=== PATIENT | male | born 1950 | race Caucasian/White ===

== ENCOUNTER 2018-05-19 19:17 | Emergency (ER) | payer MEDICARE, SELFPAY ==
[2018-05-19 19:19] VITALS: BP 198/94; PULSE 78; RESP 16; TEMP 36.6; O2SAT 99
--- NOTE | 2018-05-19 19:24 | DI.CT_ITS ---
SYMPTOMS/DIAGNOSIS: HEAD INJURY CRANIAL AND C-SPINE CT: CRANIAL: There is no evidence of an intra/extra-axial hemorrhage. There is mild diffuse heterogeneity of the white matter, consistent with small vessel disease. Also, there is mild cerebral atrophy in the medial left temporal lobe, where a low attenuation area in the medial temporal lobe is identified. This finding could represent an arachnoid cyst, or epidermoid or encephalomalacia. Hyperdensity adjacent to the calvarium in the left parietal region is identified and does not appear to represent a subdural hematoma and likely represents a vascular structure. Ventricles are unremarkable. There is no skull fracture. Note is made of increased density in the ethmoid sinuses, and right frontal sinus and sphenoid sinus, consistent with mild inflammatory change. There is no evidence of a mastoid effusion. Soft tissue swelling is noted posteriorly and superiorly on the left side. SUMMARY: No acute intracranial abnormality is demonstrated. An area of porencephaly involving the medial left temporal lobe could represent an arachnoid cyst or epidermoid or represent a region of encephalomalacia. Note is made of some increased density in the ethmoid and right frontal sinus and sphenoid sinus consistent with mild sinusitis, nil else. C-SPINE: There is no evidence of a fracture or subluxation. Note is made of mild spurring at C4-C5 and C7-T1. There is no evidence of spinal stenosis. There is mild mucoperiosteal thickening involving the posterior portion of the sphenoid sinus, consistent with mild sinusitis. There are at least three possible nodules in the posterior right upper lobe, the largest measuring up to 10 mm. Further assessment with a chest CT is suggested when clinically appropriate. SUMMARY: No acute abnormality involving the cervical spine is demonstrated. There are some regions of pleural and pulmonary thickening involving the lung apices and nodules are suggested. Further assessment with chest CT would be of value.
--- NOTE | 2018-05-19 19:27 | W.ED.GENAD ---
Discharge Plan Disposition Patient Disposition: HOME Condition: Improving Discharge Details Chief Complaint: HeadInjury Clinical Impression: Head injury due to trauma, Concussion Reason For Visit: JOEY Primary Care Provider: Saul Pierce ED Provider: Frederic Starks Home Meds and New Rx's Prescriptions: Continue pravastatin [Pravachol] 40 mg Tablet 40 mg PO DAILY RF: 0 metoprolol tartrate 100 mg Tablet 100 mg PO BID RF: 0 levetiracetam 750 mg Tablet 750 mg PO BID RF: 0 valsartan-hydrochlorothiazide 160-25 mg Tablet 1 tab PO DAILY RF: 0 Discharge Instructions Instructions: Concussion (ED), Head Injury (ED) Additional Instructions: Return immediately to the emergency department for any new or significant worsening of your symptoms. Watch your wound for any signs of infection such as purulent drainage, fever chills, severe surrounding redness to the area. Given head injury it is encouraged that you rest over the next 2 days and slowly advance activity as tolerated. Referrals: Saul Pierce [Primary Care Provider] - (As needed for reassessment) Medical Decision Making Patient presenting to the emergency department for stated mechanical fall and hitting the back of his head. Patient states that he was playing tennis this evening with some friends and went to hit an overhead ball when he slipped and fell backwards striking the back of his head. He states some bleeding from the back of his head but denies any loss of consciousness, chest pain shortness of breath difficulty breathing, neck or back pain, abnormal neurological symptoms, and remembers the whole event. Physical exam does show a moderate hematoma to the back of patient's scalp with some mild bleeding but no other significant findings on physical exam. Patient does state that he takes a daily aspirin and believes he is on a blood thinner but does not remember his medications. Patient is hypertensive but does state he does take antihypertensive medication but again does not remember the name. Plan to check labs and CT image of the head and cervical spine suspect a mechanical fall with superficial injury to the posterior scalp and doubt fracture at this time so I do not feel that patient needs to be C-collared. Review of labs is unremarkable and no concerning findings and CT image also shows no acute intracranial hemorrhage, there is some soft tissue swelling, a 5 x 3 cm low-attenuation area in the medial left temporal lobe. This may represent encephalomalacia, arachnoid cyst, or epidermoid. Review of patient's old records shows that this is not a new finding and was present on previous CT imaging. did present to the emergency department does state the patient had a severe brain infection a while ago and was hospitalized at [facility] for greater than 1 month and that finding has been present for a while. Wound was thoroughly cleansed and visualized and appears to be a superficial abrasion with some spots continuing to bleed so let was applied and a skin adhesive was used on these small spots but no significant signs of laceration are noted. Patient was able to ambulate throughout the room and state he felt a little funny in his head but otherwise denied any focal neurological deficits, patient had normal gait with no instability, and remained neurologically intact with no acute neurological findings or changes. Given this I feel the patient is able to be safely discharged with encourage rest over the next couple days and slowly advance activity as tolerated. Patient to return for any new or worsening symptoms otherwise follow-up with primary care. After discussion of diagnosis and plan of care patient and his they state no further needs, questions, or concerns and states clear understanding to return to the emergency department for any worsening symptoms. billing and accounting staff assistant noted continued hypertension that has slowly improved but still hypertensive. Patient denies any chest pain shortness of breath difficulty breathing or other symptoms so patient was encouraged to take his normal daily hypertensive medication as scheduled and monitor blood pressure. HPI General Mode of arrival: ambulatory. Date/Time Provider Initiated Documentation: 05/19/18 19:24. Limitations to Documentation: no limitations. Information obtained by: patient. History of Present Illness 67 year old M presents to the emergency department with the chief complaint of Head injury, described as mild, Related Data Home Medications Medication Instructions Recorded Confirmed levetiracetam 750 mg PO BID 05/19/18 05/19/18 metoprolol tartrate 100 mg PO BID 05/19/18 05/19/18 pravastatin [Pravachol] 40 mg PO DAILY 05/19/18 05/19/18 valsartan-hydrochlorothiazide 1 tab PO DAILY 05/19/18 05/19/18 General Stated Complaint: HeadInjury RYLAN: 3 Review of Systems Constitutional Denies fatigue Cardiovascular Denies chest pain, Denies diaphoresis, Denies syncope, Denies irregular heart rhythm and Denies dyspnea Respiratory Denies cough and Denies dyspnea Gastrointestinal Denies abdominal pain, Denies nausea and Denies vomiting Musculoskeletal Denies abnormal gait Neurologic Reports as per HPI, Denies abnormal movements, Denies abnormal speech, Denies abnormal gait, Denies confusion and Denies syncope Psychiatric Denies confusion Endocrine Denies fatigue PFSH Social History Smoking/Tobacco Use Status: Current-Occasional Exam Const General: cooperative, healthy appearing, comfortable, no acute distress and does not appear intoxicated Nutritional Appearance: average body habitus Orientation: alert, awake and oriented x3 Limitations: mental status not altered [facility] Head: no palpable skull fracture, no Silver's sign, no occipital foramen tenderness, no palpable skull fracture, scalp tenderness, no temporal artery tenderness and No periorbital ecchymosis Head images: 1. Area of hematoma, and bleeding Ears: hearing grossly normal bilaterally, external ears normal and TM's normal bilaterally General nose exam: external nose normal Face and sinus: normal facial exam Mouth: oral mucosae normal Eyes General: appearance normal, both eyes and all related structures Neck Neck: normal visual inspection, full ROM, trachea midline, supple and no anterior neck swelling Resp Effort & Inspection: normal respiratory effort and able to speak in complete sentences Auscultation: clear to auscultation bilaterally Cardio Rate: regular rate Rhythm: regular rhythm Heart Sounds: S1 normal and S2 normal Back/Spine/Pelvis Back: No back tenderness Cervical Spine: normal cervical lordosis and No cervical spinal tenderness Neuro General: alert, awake, oriented x3, gait normal, tone normal, moves all extremities, no focal motor deficits, CN's II-XI intact bilaterally and not confused Course Vital Signs Temperature 36.6 C 05/19/18 19:19 Pulse 78 05/19/18 19:19 Respiratory Rate 16 05/19/18 19:19 Blood Pressure 198/94 H 05/19/18 19:19 Pulse Oximetry 99 05/19/18 19:19 Temperature 36.6 C 05/19/18 19:19 Pulse 78 05/19/18 19:19 Respiratory Rate 16 05/19/18 19:19 Blood Pressure 198/94 H 05/19/18 19:19 Blood Pressure Position Sitting 05/19/18 19:19 Pulse Oximetry 99 05/19/18 19:19 Oxygen Delivery Method Room Air 05/19/18 19:19 Oxygen Flow Rate 0 05/19/18 19:19
[2018-05-19 19:57] LABS: Abs Immature Grans 0.01 k/cumm (0.0-0.09); Absolute Basophil Count 0.01 k/cumm (0.0-0.2); Absolute Eosinophil Count 0.37 k/cumm (0.0-0.7); Absolute Lymphocyte Count 2.16 k/cumm (1.2-3.4); Absolute Monocyte Count 0.93 k/cumm (0.11-0.7); Absolute Neutrophil Count 3.84 k/cumm (1.2-6.7); Basophils % 0.1; Eosinophils % 5.1; HCT 39.4 % (40.0-50.0); Immature Grans % 0.1; Lymphocytes % 29.5; Mean Corp. HGB Concentration 35.5 g/dL (32.0-36.0); Mean Corpuscular Volume 98.5 fL (80-95); Mean Platelet Volume 9.1 fL (8.0-11.0); Monocytes % 12.7; Neutrophils % 52.5; Platelet Count 285 x1000/uL (130-400); RBC Distribution Width 12.1 % (11.8-14.1); White Blood Cell Count 7.32 k/cumm (4.4-10.8)
[2018-05-19 19:58] LABS: ALT 36 U/L (12-78); AST 26 U/L (15-37); Albumin 3.7 g/dL (3.4-5.0); Alkaline Phosphatase 72 U/L (46-116); BUN 16 mg/dL (7-18); Bilirubin, Total 0.3 mg/dL (0.2-1.0); CREATININE 0.73 mg/dL (0.70-1.30); Calcium 9.2 mg/dL (8.5-10.1); Chloride 93 mmol/L (98-107); Glucose 104 mg/dL (70-100); Potassium 3.8 mmol/L (3.5-5.1); Sodium 131 mmol/L (136-145); Total Protein 7.2 g/dL (6.4-8.2)
--- NOTE | 2018-05-19 20:40 | DI.VRAD_ITS ---
EXAM: CT Head Without Intravenous Contrast EXAM DATE/TIME: 05/19/2018 7:27 PM CLINICAL HISTORY: 67 years old, male; Signs and symptoms; Other: Fall , head injury TECHNIQUE: Axial computed tomography images of the head/brain without intravenous contrast. All CT scans at this facility use at least one of these dose optimization techniques: automated exposure control; mA and/or kV adjustment per patient size (includes targeted exams where dose is matched to clinical indication); or iterative reconstruction. Coronal and sagittal reformatted images were created and reviewed. COMPARISON: No relevant prior studies available. FINDINGS: Brain: No acute intracranial hemorrhage. There is mild diffuse heterogeneity of the white matter attenuation, consistent with chronic white matter ischemic changes. Mild cerebral atrophy 5 x 3 cm low attenuation area in the medial left temporal lobe. This may represent encephalomalacia, arachnoid cyst, or epidermoid. Hyperdensity adjacent to the calvarium in the left parietal region is seen on one image (5:23). This is thought to represent a vascular structure and not a subdural hematoma.. Ventricles: Normal. No ventriculomegaly. Bones/joints: Normal. No acute fracture. Sinuses: Opacities in the ethmoid sinuses and right frontal sinus and sphenoid sinuses may represent sinusitis. Mastoid air cells: Normal as visualized. No mastoid effusion. Soft tissues: Extracalvarial soft tissue swelling posteriorly and superiorly on the left. 13 mm. IMPRESSION: 1. No acute intracranial hemorrhage. 2. Extracalvarial soft tissue swelling posteriorly and superiorly on the left. 13 mm. 3. 5 x 3 cm low attenuation area in the medial left temporal lobe. This may represent encephalomalacia, arachnoid cyst, or epidermoid. 4. Opacities in the ethmoid sinuses and right frontal sinus and sphenoid sinuses may represent sinusitis. EXAM: CT Cervical Spine Without Intravenous Contrast EXAM DATE/TIME: 05/19/2018 7:27 PM CLINICAL HISTORY: 67 years old, male; Signs and symptoms; Other: Fall , head injury TECHNIQUE: Axial computed tomography images of the cervical spine without intravenous contrast. All CT scans at this facility use at least one of these dose optimization techniques: automated exposure control; mA and/or kV adjustment per patient size (includes targeted exams where dose is matched to clinical indication); or iterative reconstruction. Coronal and sagittal reformatted images were created and reviewed. COMPARISON: No relevant prior studies available. FINDINGS: Vertebrae: No acute fracture. Posterior spur formation at C4/C5, C7, and T1. Discs/Spinal canal/Neural foramina: No spinal stenosis. No neural foraminal narrowing. Soft tissues: Unremarkable. Sinuses: Opacity in the sphenoid sinus may be present mild sinusitis Lungs: At least 3 possible nodules in the posterior right upper lobe. Largest 10 mm. Differential includes atelectasis scar, pneumonia. Other findings: No dislocation. IMPRESSION: 1. No acute fracture. 2. No dislocation. Dictated and Authenticated by: John Ramirez MD. Ordering:HUGO PUENTE MD
[2018-05-19 21:02] LABS: PTT Activated 24.2 sec (21.0-31.4); Prothrombin Time 9.5 sec (9.3-10.8)
[2018-05-19 21:51] VITALS: BP 183/98
[2018-05-19 21:53] VITALS: BP 183/98; PULSE 78; RESP 16; TEMP 36.6; O2SAT 99
== END 2018-05-19 21:53 | disposition home or self-care (01) ==
PROVIDERS: Emergency Provider Nurse Practitioner Family; PCP Family Medicine
DX: S06.0X0A Concussion without loss of consciousness, initial encounter (principal); W01.0XXA Fall on same level from slipping, tripping and stumbling without subsequent striking against object, initial encounter; Y93.73 Activity, racquet and hand sports
CPT/HCPCS: 36415; 80053; 99284; 70450; 72125; 85025; 85610; 85730